=== PATIENT | male | born 1990 | race Caucasian/White ===

== ENCOUNTER 2020-10-18 09:42 | Outpatient (REF) | payer OTHER, SELFPAY ==
--- NOTE | ~2020-10-18 | CT_ITS ---
EXAMINATION: CT HEAD WITHOUT CONTRAST CLINICAL INFORMATION: Traumatic subdural hemorrhage with loss of consciousness COMPARISON: None TECHNIQUE: Contiguous axial imaging was performed from the skull base to vertex without intravenous administration of contrast. This CT examination was performed using dose optimization techniques as appropriate, variously including the following: *Automated exposure control *Adjustment of mA and/or kV according to patient size (this includes techniques or standardized protocols for targeted exams where dose is matched to indication/reason for exam; i.e. extremities or head) *Use of iterative reconstruction technique DLP: 751 mGy-cm FINDINGS: There is dural thickening and calcification and small amount of extra-axial air adjacent to the right parietal lobe. There is no evidence of an extra-axial collection. There is no evidence of intra-axial or extra-axial hemorrhage. The ventricles and extra-axial CSF spaces are appropriate. Azul-white matter differentiation is normal. No mass, mass effect or infarct is seen. There postsurgical changes from frontal and parietal bone craniotomy. Bony structures are otherwise unremarkable. CT/CT head/brain wo con IMPRESSION: Post surgical changes to the right frontal and parietal bones. Slight dural thickening and calcification and small amount of extra-axial air adjacent to the right parietal lobe. No evidence of hemorrhage.
== END 2020-10-18 09:43 | disposition home or self-care (01) ==
LOC: HO.CT 09:42
PROVIDERS: PCP Internal Medicine; Visit Provider Internal Medicine
DX: S06.5X9A Traumatic subdural hemorrhage with loss of consciousness of unspecified duration, initial encounter (principal); R43.0 Anosmia; R43.2 Parageusia
CPT/HCPCS: 70450

== ENCOUNTER 2021-05-23 13:48 | Outpatient (REF) | payer OTHER, SELFPAY ==
[2021-05-24 03:09] LABS: CT PCR NOT DETECTED (Not Detect.); NG PCR NOT DETECTED (Not Detect.)
[2021-05-24 08:10] LABS: HIV AB/AG Nonreactive (Nonreactive); HIV Num 1 0.09 S/CO (0.00-0.99)
[2021-05-25 08:42] LABS: Syphilis Screen Nonreactive (Nonreactive)
== END 2021-05-23 13:49 | disposition home or self-care (01) ==
LOC: HO.HMGCLDS 13:48
PROVIDERS: Visit Provider Internal Medicine
DX: Z00.00 Encounter for general adult medical examination without abnormal findings (principal); Z11.3 Encounter for screening for infections with a predominantly sexual mode of transmission; Z11.4 Encounter for screening for human immunodeficiency virus [HIV]
CPT/HCPCS: 86780; 87389; 87491; 87591

== ENCOUNTER → 2021-07-30 13:04 | Outpatient (BNVA) | payer OTHER, SELFPAY | PROVIDERS: PCP Internal Medicine; Visit Provider Surgery | DX: K40.90 Unilateral inguinal hernia, without obstruction or gangrene, not specified as recurrent (principal) | CPT/HCPCS: 99202 ==

== ENCOUNTER 2021-09-12 13:06 | Outpatient (REF) | payer OTHER, SELFPAY ==
[2021-09-12 13:25] LABS: COVID-19 Test Positive (Negative)
== END 2021-09-12 13:07 | disposition home or self-care (01) ==
LOC: HO.LAB 13:06
PROVIDERS: Visit Provider Internal Medicine
DX: Z20.822 Contact with and (suspected) exposure to COVID-19 (principal)
CPT/HCPCS: 87635; C9803

== ENCOUNTER 2021-09-25 07:06 | Day surgery (SDC) | payer OTHER, SELFPAY ==
[2021-09-19 14:16] VITALS: BMI 24.9
--- NOTE | 2021-09-24 09:25 | HO.ANESPROP2 ---
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 [facility] Active Problems Active Problems: All Active Problems (Updated 09/19/21 @ 14:21 by Latasha Parra RN) Recurrent mild major depressive disorder with anxiety (Acute) Right inguinal hernia (Acute) History of peptic ulcer (Acute) Right lower quadrant abdominal mass (Acute) Traumatic epidural hematoma (Acute) Loss of taste (Acute) Anosmia (Acute) Past Medical History Medical History Anosmia Anxiety Calvarial fracture COVID-19 vaccine series completed History of COVID-19 History of peptic ulcer Loss of taste Recurrent mild major depressive disorder with anxiety Right inguinal hernia Right lower quadrant abdominal mass Routine screening for STI (sexually transmitted infection) Traumatic subdural hematoma Family History Family History Father H/O: stroke History of hypertension Mother Hepatitis B Surgical History Surgical History H/O craniotomy History of gastric surgery Social History Social History Housing: House Are you a primary child care lead teacher to a significant other at home: No Do you presently have visiting nurse or other home services: No Alcohol intake: never Patient Tobacco Use Status: Former Tobacco user Quit Date: age 27 (currently vapes-attempting to quit) Tobacco use type: Cigarette Years Smoked: 4 yrs e-Cigarette/Vaping Use: Never Used Use of substances other than those prescribed or required for medical reasons: No Have you been hit, kicked, punched, or otherwise hurt by someone within the past year? If so, by whom?: No Are you DNR?: No Advance Directives: No Advance Directives Information Provided: Yes (brochure mailed) Advance Directives on File: No Recently lost weight without trying: No Eating poorly because of decreased appetite: No Nutrition Risks: No Nutritional Risk Poor oral hygiene: No service: No Current occupational status: employed Meds Allergies Allergy/AdvReac Type Severity Reaction Status Date / Time No Known Allergies Allergy Verified 09/25/21 07:12 Home Medications Medication Instructions Recorded Confirmed Last Taken Type multivitamin 1 tab PO DAILY 05/23/21 09/19/21 Unknown History omega-3 fatty acids 1,000 mg 1,000 mg PO DAILY 05/23/21 09/19/21 Unknown History capsule (Fish Oil Concentrate) tumeric 100 mg-gale 150 mg-olive 1 cap PO DAILY 05/23/21 09/19/21 Unknown History 50 mg-oreg 150 mg-caprylate capsule Exam Exam Date and Time: September 24, 2021 0925 Height,Weight and Vital Signs: Height 5 ft 8 in Weight 74.389 kg Assessment and Plan Assessment Anesthesia Assessment: Chart Reviewed Documented by User: Chago Ron MD 09/25/21 09:05 [facility] Past Medical History Medical History Anosmia Anxiety Calvarial fracture COVID-19 vaccine series completed History of COVID-19 History of peptic ulcer Loss of taste Recurrent mild major depressive disorder with anxiety Right inguinal hernia Right lower quadrant abdominal mass Routine screening for STI (sexually transmitted infection) Traumatic subdural hematoma Family History Family History Father H/O: stroke History of hypertension Mother Hepatitis B Family history of problems with anesthesia: No Surgical History Surgical History H/O craniotomy History of gastric surgery History of Problems with Anesthesia: No Social History Social History Housing: House Are you a primary child care lead teacher to a significant other at home: No Do you presently have visiting nurse or other home services: No Alcohol intake: never Patient Tobacco Use Status: Former Tobacco user Quit Date: age 27 (currently vapes-attempting to quit) Tobacco use type: Cigarette Years Smoked: 4 yrs e-Cigarette/Vaping Use: Never Used Use of substances other than those prescribed or required for medical reasons: No Have you been hit, kicked, punched, or otherwise hurt by someone within the past year? If so, by whom?: No Are you DNR?: No Advance Directives: No Advance Directives Information Provided: Yes (brochure mailed) Advance Directives on File: No Recently lost weight without trying: No Eating poorly because of decreased appetite: No Nutrition Risks: No Nutritional Risk Poor oral hygiene: No service: No Current occupational status: employed Meds Allergies Allergy/AdvReac Type Severity Reaction Status Date / Time No Known Allergies Allergy Verified 09/25/21 07:12 Home Medications Medication Instructions Recorded Confirmed Last Taken Type multivitamin 1 tab PO DAILY 05/23/21 09/19/21 Unknown History omega-3 fatty acids 1,000 mg 1,000 mg PO DAILY 05/23/21 09/19/21 Unknown History capsule (Fish Oil Concentrate) tumeric 100 mg-gale 150 mg-olive 1 cap PO DAILY 05/23/21 09/19/21 Unknown History 50 mg-oreg 150 mg-caprylate capsule Exam Airway Mallampati Class: I TM Dist: >3cm Neck ROM: Full Loose/Missing/Broken Teeth: No Heart: ok Lungs: ok Assessment and Plan Final Anesthetic Review Family History of Problems with Anesthesia: No History of Problems with Anesthesia: No NPO: Yes ASA Class: II Final Preanesthetic Review: No Changes in Pt Med Stat, Meds/Allgs Chart Reviewed, Consent Obtained/Reviewed and Anes Risks/Benef Reviewed Patient Risk: Low Procedure Risk: Low Anesthetic Plan Anesthetic Plan: GA and Agree w/ Assess. and Plan Disposition: Standard PACU
[2021-09-25 07:24] VITALS: BP 134/84; PULSE 55; RESP 16; TEMP 36.8; O2SAT 99
--- NOTE | 2021-09-25 07:26 | MHC.SHP ---
Pre-Procedural Eval Section A Date of Service: 09/25/21 Section B Chief Complaint: Unilateral inguinal hernia, Details of Present Illness: has reducible mass on the right groin c/w hernia Relevant Family History (Specify if Yes): No Relevant Social History: None Present Medications: see Short Stay Collaborative assessment Medical History: Significant History (anxiety/depression, hx of TBI, ) Allergies: Allergies Allergy/AdvReac Type Severity Reaction Status Date / Time No Known Allergies Allergy Verified 09/25/21 07:12 Review of Systems Sugical H&P ROS: Negative: Constitution, Cardiovascular, Respiratory, Neurological, Psychiatric, Hem-Onc, Allergic/Immunologic, Gastrointestinal, Genitourinary, Musculoskeletal, Integumentary, Endocrine and Eyes/Ears/Nose/Throat Exam Surgical H&P Exam: Normal: HEENT, Normal: Heart, Normal: Lungs, Normal: Extremities, Normal: Skin and Normal: Neurological and Significant Findings: Abdomen (reducible right inguinal hernia) Plan I have reviewed the history and physical and performed a pertinent physical examination on my patient. No changes have occurred unless specified.
[2021-09-25] MEDS: Lactated Ringers 1,000 ML 100 ML IVCONT (07:54)
--- NOTE | 2021-09-25 09:52 | P.OP_ITS ---
Operative Note Operative Note Date of Service: 09/25/21 Narrative: Preop diagnosis: Inguinal hernia Postop diagnosis: Right inguinal hernia, indirect Procedure: Repair of right inguinal hernia with mesh Surgeon: Taco Cedillo MD assistant teacher primary: GARRETT Harris The patient is a 31-year-old male with a reducible mass on the right groin consistent with a right inguinal hernia. He understood the technique of repair with mesh. He was aware of the risks, benefits, and alternatives He was brought to the operating room and placed supine under general anesthesia via laryngeal mask airway. The right groin was prepped and draped in the usual sterile fashion. A surgical time-out was done. The patient received cefazolin 2 g IV preoperatively. I infiltrated the planned line of incision with lidocaine 1%. I made a short incision skin along an imaginary line from the anterior superior iliac spine to the pubic ramus using blade 15. This was carried down through the full-thickness of skin subcutaneous fat with electrocautery. The external oblique aponeurosis was visualized. I bluntly dissected this to define the external ring. I made an incision on the external oblique aponeurosis using blade 15 and nd this was extended inferomedially to connect with the external ring. I bluntly dissected the underside of the aponeurosis to create a pocket for the mesh. I also bluntly dissected the spermatic cord and its contents with my index finger until I was able to pass a [place] drain around this. This [place] drain was used for traction. I identified the vas deferens and the accompanying vessels. By doing so was able to identify a small hernia sac anteromedial aspect. This sac was gently dissected off of the rest of the cord contents until this was reduced through the internal ring. This was therefore an indirect hernia. I reinforced the internal ring with a small sized Prolene plug. The plug was secured with Prolene 2 sutures to the shelving edge of the inguinal and laterally and the internal oblique superior and medial using the inner leaves of the mesh. I then reinforced the floor of the canal with a keyhole mesh. The tails of the mesh were passed around the cord at the level of the internal ring and were secured together with Prolene 2 sutures. I secured the mesh with Prolene 2 sutures to the shelving edge of the inguinal and laterally and the internal oblique superiorly medially as well as the ramus inferomedially I then irrigated. Once hemostasis was ensured, I applied viscous bupivacaine and meloxicam to the underside of the aponeurosis. I closed the aponeurosis were running Dexon 2-0 stitch to re-create the external ring. I applied viscus bupivacaine and meloxicam again to the layer above the closed fascia. I then reapposed the subcutaneous layer with Dexon 3-0 the sutures. Skin closure was achieved with Dexon 4-0 subcuticular running stitch. Steri-Strips and dressings were applied. The incision was also infiltrated with Marcaine 0.5% for postop analgesia. The procedure was then completed The patient tolerated procedure well. There were no complication noted. Initial and final counts of sponges and instruments were correct. Estimated blood loss was about 10 cc The patient was extubated without difficulty and transferred to the recovery room with stable vital signs
[2021-09-25 10:11] VITALS: BP 146/90; PULSE 47; RESP 12; TEMP 36.7; O2SAT 99
[2021-09-25 10:16] VITALS: BP 142/91; PULSE 48; RESP 12; O2SAT 99
[2021-09-25 10:21] VITALS: BP 129/92; PULSE 43; RESP 14; O2SAT 99
[2021-09-25 10:26] VITALS: BP 142/88; PULSE 47; RESP 16; O2SAT 100
[2021-09-25] MEDS: Acetaminophen 325 MG TABLET 650 MG PO (10:30)
[2021-09-25 10:41] VITALS: BP 143/89; PULSE 48; RESP 16; TEMP 36.4; O2SAT 100
== END 2021-09-25 11:32 | disposition home or self-care (01) ==
PROVIDERS: PCP Internal Medicine; Visit Provider Surgery
PROC: (CPT 49505; principal; 2021-09-25 09:10)
DX: K40.90 Unilateral inguinal hernia, without obstruction or gangrene, not specified as recurrent (principal); R43.0 Anosmia; F41.1 Generalized anxiety disorder; Z79.899 Other long term (current) drug therapy; Z86.16 Personal history of COVID-19; Z98.890 Other specified postprocedural states; Z87.891 Personal history of nicotine dependence
CPT/HCPCS: 49505; C1781; C9399; J0690; J1100; J1885; J2250; J2405; J3010

== ENCOUNTER → 2021-10-08 09:06 | Outpatient (BNVA) | payer OTHER, SELFPAY | PROVIDERS: PCP Internal Medicine; Referring Provider Internal Medicine; Visit Provider Surgery | DX: Z48.815 Encounter for surgical aftercare following surgery on the digestive system (principal); Z87.19 Personal history of other diseases of the digestive system | CPT/HCPCS: 99212 ==

== ENCOUNTER 2022-08-19 11:03 | Outpatient (REF) | payer OTHER, SELFPAY ==
[2022-08-19 13:44] LABS: MANUAL DIFF FLAG NO
[2022-08-19 13:58] LABS: Basophils Percent Auto 0.3 % (0-2); Eosinophils Percent Auto 0.8 % (0-4); Hematocrit 45.4 % (42.0-52.0); Imm Gran Abs Auto 0.01 X10*3/uL (0.00-0.03); Imm Gran Pct Auto 0.3 % (0.0-0.4); Lymphocytes Percent Auto 26.9 % (20-40); Mean Corpuscular Hemoglobin 30.3 pg (27.0-33.0); Mean Corpuscular Volume 91.7 fL (80.0-98.0); Mean Platelet Volume 9.8 fL (9.4-12.4); Monocytes Absolute Auto 0.3 X10*3/uL (0.1-1.2); Neutrophils Absolute Auto 2.5 x10*3/uL (2.0-8.3); Neutrophils Percent Auto 63.7 % (45-73); Platelet Count 243 X10*3/uL (160-400); Red Blood Count 4.95 X10*6/uL (4.60-5.80); Red Cell Distribution Width 11.7 % (11.0-16.0); White Blood Count 3.9 X10*3/uL (4.8-10.8)
[2022-08-19 14:24] LABS: Alanine Aminotransferase 23 U/L (0-40); Anion Gap 12 (12-20); Aspartate Amino Transferase 22 U/L (5-37); Blood Urea Nitrogen 13 mg/dL (9-16); Calcium 9.7 mg/dL (8.4-10.2); Carbon Dioxide 30 mmol/L (22-29); Chloride 103 mmol/L (96-108); Cholesterol 223 mg/dL; Estimated Glomerular Filt Rate > 60; Glucose Fasting 96 mg/dL (60-99); HDL Cholesterol 67 mg/dL; LDL Cholesterol Calculated 145 mg/dl; Potassium 5.1 mmol/L (3.3-5.1); Sodium 140 mmol/L (135-145); Triglycerides 59 mg/dL
[2022-08-19 14:41] LABS: Vitamin D 25-OH Total 21.6 ng/mL (>30)
[2022-08-19 14:45] LABS: Syphilis Screen Nonreactive (Nonreactive)
== END 2022-08-19 11:04 | disposition home or self-care (01) ==
LOC: HO.HMGCLDS 11:03
PROVIDERS: PCP Internal Medicine; Visit Provider Internal Medicine
DX: Z00.01 Encounter for general adult medical examination with abnormal findings (principal); F33.0 Major depressive disorder, recurrent, mild; F41.9 Anxiety disorder, unspecified; Z87.11 Personal history of peptic ulcer disease; Z20.2 Contact with and (suspected) exposure to infections with a predominantly sexual mode of transmission
CPT/HCPCS: 36415; 80048; 80061; 82306; 84450; 84460; 85025; 86780

== ENCOUNTER 2023-01-22 12:36 | Outpatient (AMB) | payer OTHER, SELFPAY ==
--- NOTE | 2023-01-22 13:03 | AM.OFFWIN_ITS ---
Intake Vital Signs 01/22/23 13:04 Height 5 ft 9 in Weight 174 lb BMI 25.7 BP 110/64 Blood Pressure Location Rt brachial Position Sitting Pulse 63 Pulse Source Pulse Oximeter Temp 97.8 F Temp Source Temporal Artery Scan Pulse Oximetry (%) 99 Intake Visit Reasons: EST/left ankle pain Intake Note: pt is here for c/o left ankle pain Patient Tobacco Use Status: Former Tobacco user Quit Date: age 27 (currently vapes-attempting to quit) Allergies No Known Allergies Allergy (Verified 01/22/23 13:38) Medication List - Last Reconciled 01/22/23 by Bob Thao MD buspirone 10 mg (2 x 5 mg) PO TID 30 days clonidine HCl 0.1 mg PO BID escitalopram oxalate 10 mg PO DAILY multivitamin 1 tab PO DAILY omega-3 fatty acids (Fish Oil Concentrate) 1,000 mg PO DAILY Do you need a note to return to daycare/school/sports/work: Yes HPI EST/left ankle pain HPI Details 32-year-old male presents to the office for a sick visit. Patient rolled over his ankle while walking yesterday. Significant swelling. [facility] Medical History (Updated 01/22/23 @ 13:34 by Bob Thao MD) Annual visit for general adult medical examination with abnormal findings Anosmia Anxiety Calvarial fracture COVID-19 vaccine series completed Depression History of COVID-19 History of peptic ulcer Loss of taste Right inguinal hernia Routine screening for STI (sexually transmitted infection) Traumatic epidural hematoma Surgical History H/O craniotomy History of gastric surgery Family History Father H/O: stroke History of hypertension Mother Hepatitis B Social History Housing: House Are you a primary emergency care attendant to a significant other at home: No Do you presently have visiting nurse or other home services: No Alcohol intake: never Patient Tobacco Use Status: Former Tobacco user Quit Date: age 27 (currently vapes-attempting to quit) Years Smoked: 4 yrs e-Cigarette/Vaping Use: Former Use service: No Current occupational status: employed Cognitive needs: No Hearing needs: No Vision needs: Yes Physical Exam Vital Signs: Last Vital Signs Temp 97.8 F 01/22/23 13:04 Pulse 63 01/22/23 13:04 BP 110/64 01/22/23 13:04 Pulse Ox 99 01/22/23 13:04 BMI result Body Mass Index 25.7 Extrem Other: Left ankle: Bruising over the lateral side of the foot and ankle. Very painful on inversion and eversion. Full flexion and extension of the foot at the ankle is painful. Assessment & Plan Assessment & Plan (1) Sprain of left ankle: Code(s): S93.402A - Sprain of unspecified ligament of left ankle, initial encounter Plan: X-ray images were personally reviewed by me. No fractures seen. Meloxicam called in. Ankle brace provided. Note for work given. Orders: Orders XR ankle LT min 3V Today S93.402A - Sprain of unspecified ligament of left ankle, initial encounter Coding Level of Care Code Est Pt Level 4 (11279) Diagnoses Sprain of left ankle S93.402A
[2023-01-22 13:04] VITALS: BP 110/64; PULSE 63; TEMP 36.6; O2SAT 99; BMI 25.7
== END 2023-01-22 14:39 | disposition home or self-care (01) ==
PROVIDERS: PCP Internal Medicine; Visit Provider Internal Medicine
DX: S93.402A Sprain of unspecified ligament of left ankle, initial encounter (principal)
CPT/HCPCS: 99214

== ENCOUNTER 2023-01-22 13:36 | Outpatient (REF) | payer OTHER, SELFPAY ==
--- NOTE | ~2023-01-22 | XR_ITS ---
EXAMINATION: XR ANKLE, LEFT CLINICAL INFORMATION: Left ankle pain status post injury. COMPARISON: None available. TECHNIQUE: AP, lateral, and mortise views of the left ankle. An indicator arrow points to the lateral malleolus. FINDINGS: No fracture. Alignment is anatomic. No erosions. Joint spaces are maintained. Soft tissues are normal. XR/XR ankle LT min 3V IMPRESSION: Unremarkable left ankle.
== END 2023-01-22 13:37 | disposition home or self-care (01) ==
LOC: HO.HMGCX 13:36
PROVIDERS: PCP Internal Medicine; Visit Provider Internal Medicine
DX: S93.402A Sprain of unspecified ligament of left ankle, initial encounter (principal); X58.XXXA Exposure to other specified factors, initial encounter; Y93.9 Activity, unspecified; Y92.9 Unspecified place or not applicable; Y99.9 Unspecified external cause status
CPT/HCPCS: 73610

== ENCOUNTER 2023-08-06 10:09 | Outpatient (REF) | payer OTHER, SELFPAY ==
[2023-08-06 14:06] LABS: Alanine Aminotransferase 17 U/L (0-40); Anion Gap 10 (12-20); Aspartate Amino Transferase 17 U/L (5-37); Blood Urea Nitrogen 11 mg/dL (9-16); Calcium 9.6 mg/dL (8.4-10.2); Carbon Dioxide 29 mmol/L (22-29); Chloride 105 mmol/L (96-108); Cholesterol 203 mg/dL (<200); Estimated Glomerular Filt Rate > 60; Glucose Fasting 100 mg/dL (60-99); HDL Cholesterol 46 mg/dL (>40); LDL Cholesterol Calculated 146 mg/dL (<100); Potassium 4.2 mmol/L (3.3-5.1); Sodium 140 mmol/L (135-145); Triglycerides 55 mg/dL (<150); Vitamin D 25-OH Total 25.2 ng/mL (>30)
== END 2023-08-06 10:10 | disposition home or self-care (01) ==
LOC: HO.HMGCLDS 10:09
PROVIDERS: PCP Internal Medicine; Visit Provider Internal Medicine
DX: F32.A Depression, unspecified (principal); E78.5 Hyperlipidemia, unspecified; E55.9 Vitamin D deficiency, unspecified
CPT/HCPCS: 36415; 80048; 80061; 82306; 84450; 84460

== ENCOUNTER 2023-08-22 11:06 | Outpatient (AMB) | payer OTHER, SELFPAY ==
[2023-08-22 11:42] VITALS: BP 126/84; PULSE 74; O2SAT 98; BMI 24.8
--- NOTE | 2023-08-22 11:42 | MHC.PC.OV ---
Vital Signs 08/22/23 11:42 Height 5 ft 9 in Weight 168 lb BMI 24.8 BP 126/84 Blood Pressure Location Rt brachial Position Sitting Pulse 74 Pulse Source Pulse Oximeter Pulse Oximetry (%) 98 Oxygen Delivery Method Room Air Intake Visit Reasons: PE Intake Note: Pt is here today for his physical exam. Allergies No Known Allergies Allergy (Verified 08/22/23 12:06) Medication List - Last Reconciled 08/22/23 by Mary Ardon MD bupropion HCl 150 mg PO QAM buspirone 10 mg PO BID cholecalciferol (vitamin D3) 1,250 mcg PO QWEEK 3 months clonidine HCl 0.1 mg PO BID fluoxetine 40 mg PO DAILY multivitamin 1 tab PO DAILY omega-3 fatty acids (Fish Oil Concentrate) 1,000 mg PO DAILY Tobacco use date assessed: 08/22/23 Dental Screening Dental Screen Date: 08/22/23 Did you have a dental visit in the last 12 months?: Yes Did you have a dental problem in the last 6 months where you did not have access to dental care?: No Was dental information given to patient?: Patient has dentist HPI PE HPI Details 34-year-old male depression, dyslipidemia, history of vitamin-D deficiency, here today for his physical exam. He has been feeling well, has no complaints at present time. Up-to-date with all his vaccines, per patient, which he gets from the . He currently sees a psychiatrist , with depression stable and controlled on current medications. [facility] Medical History Vitamin D deficiency Dyslipidemia Depression Annual visit for general adult medical examination with abnormal findings Anxiety History of COVID-19 COVID-19 vaccine series completed Right inguinal hernia History of peptic ulcer Routine screening for STI (sexually transmitted infection) Traumatic epidural hematoma Calvarial fracture Loss of taste Anosmia Surgical History History of gastric surgery H/O craniotomy Family History Father H/O: stroke History of hypertension Mother Hepatitis B Social History Housing: House Are you a primary palliative care nurse to a significant other at home: No Do you presently have visiting nurse or other home services: No Alcohol intake: never Patient Tobacco Use Status: Former Tobacco user Quit Date: age 27 (currently vapes-attempting to quit) Years Smoked: 4 yrs e-Cigarette/Vaping Use: Former Use service: No Current occupational status: employed Cognitive needs: No Hearing needs: No Vision needs: Yes Questionnaire PHQ-9 Over the last 2 weeks, how often have you been bothered by any of the following problems? 1. Little interest or pleasure in doing things: not at all 2. Feeling down, depressed, or hopeless: not at all 3. Trouble falling or staying asleep, or sleeping too much: more than half the days 4. Feeling tired or having little energy: several days 5. Poor appetite or overeating: not at all 6. Feeling bad about yourself - or that you are a failure or have let yourself or your family down: not at all 7. Trouble concentrating on things, such as reading the newspaper or watching television: several days 8. Moving or speaking so slowly that other people could have noticed. Or the opposite - being so fidgety or restless that you have been moving around a lot more than usual: not at all 9. Thoughts that you would be better off or of hurting yourself in some way: not at all Total score: 4 Depression Screening Interpretation: Positive (His currently followed by psychiatry) Depression Screening Follow-up: Existing condition, In treatment and Community Mental Health Worker F/U Depression Screening Done: Yes 63984 - PHQ-9 Billing: Yes Source: Developed by Drs. Aly Jiménez, Payal Hollingsworth, Allen Corona and colleagues, with an educational gold from [employer]. Thrive Questionnaire Date Thrive assessed: 08/22/23 I am a: Patient What is your living situation today?: I have a steady place to live Within the past 12 months, did the food you bought not last and you didn't have the money to get more?: Never true Within the past 12 months, did you worry whether your food would run out before you got money to buy more?: Never true Do you have trouble paying for medicines?: No Do you have trouble getting transportation to medical appointments?: No Do you have trouble paying your heating and electricity bill?: No Do you have trouble taking care of your child, family member or friend?: No Do you have trouble with day-to-day activities such as bathing, preparing meals, shopping, managing finances, etc.?: No Are you currently unemployed and looking for a job?: No Are you interested in more education?: No THRIVE Score: 0 AUDIT C Alcohol Use Questionnaire (AUDIT-C) 1. How often do you have a drink containing alcohol?: Never Total Score: 0 TOMA-7 AMB Questionnaire TOMA-7 Date TOMA - 7 assessed: 08/22/23 Feeling nervous, anxious, or on edge: 1 = Several days Not being able to stop or control worryin = Not at all Worrying too much about different things: 1 = Several days Trouble relaxin = Several days Being so restless that it is hard to sit still: 0 = Not at all Becoming easily annoyed or irritable: 1 = Several days Feeling afraid as if something awful might happen: 0 = Not at all Total TOMA-7 score (0-4 normal; 5-9 mild; 10-14 moderate; 15-21 severe): 4 Source: Developed by Drs. Aly Jiménez, Payal Hollingsworth, Allen Corona and colleagues, with an educational gold from [employer]. Review of Systems Const Denies fatigue, Denies fever(s) and Denies headache(s) Eyes Denies change in vision ENT Reports no additional complaints and Denies headache(s) Card Denies chest pain, Denies dyspnea and Denies dyspnea on exertion Resp Denies cough, Denies dyspnea and Denies dyspnea on exertion GI Denies hematochezia and Denies change in bowel habits Denies hematuria and Denies difficulty urinating Musc Denies back pain and Denies limited range of motion Skin/Breast Denies lesions and Denies rash Neuro Denies headache(s), Denies focal weakness and Denies convulsions Psych Reports as per HPI Endo Reports no additional complaints and Denies fatigue Juan/Lymph Reports no additional complaints Aller/Immun Reports no additional complaints Physical exam (Primary Care) Vital Signs: Last Vital Signs Pulse 74 08/22/23 11:42 BP 126/84 08/22/23 11:42 Pulse Ox 98 08/22/23 11:42 Oxygen Delivery Method Room Air 08/22/23 11:42 BMI result Body Mass Index 24.8 Tobacco/Smoking Status: Tobacco use Status Tobacco use date assessed 08/22/23 08/22/23 11:47 Patient Tobacco Use Status Former Tobacco user 08/22/23 11:47 Tobacco use type 11/23/21 13:48 e-Cigarette/Vaping Use Former Use 08/22/23 11:47 PHQ-9: PHQ-9 Score PHQ-9: Total score 6 08/22/23 12:07 Depression Screening Interpretation: Positive (His currently followed by psychiatry) Depression Screening Follow-up: Existing condition, In treatment and Community Mental Health Worker F/U Thrive Assessment: Date of Thrive Assessment Date Thrive assessed 08/22/23 08/22/23 11:51 Const General: cooperative, comfortable, no acute distress, alert, awake and Physically active Nutritional Appearance: average body habitus Orientation/consciousness: patient oriented x3 HENMT Head: Yes normocephalic and Yes atraumatic Ears: external ears normal, TM's normal bilaterally and EAC's normal General nose exam: Normal external nose present and No nasal discharge present Face and sinus: Yes face symmetric Mouth: Normal oral and palatal mucosa present and moist mucous membranes Throat: Yes posterior oropharynx normal Eyes General: appearance normal, both eyes and all related structures Neck Neck: Yes full ROM, Yes no lymphadenopathy and Yes supple Thyroid: Thyroid normal (nonpalpable) Chest Chest palpation & inspection: normal palpation of entire chest wall Resp Effort & Inspection: normal respiratory effort and able to speak in complete sentences Auscultation: clear to auscultation bilaterally Cardio Rate: regular rate Rhythm: regular rhythm Heart sounds: S1 normal heart sound present and S2 normal heart sound present Peripheral pulses: Peripheral pulses 2+ throughout GI Palpation (GI): Soft to palpation, nontender, no guarding and no masses Auscultation: normal bowel sounds General: Yes no CVA tenderness Male General Exam: Yes normal external exam Penis: normal penis and uncircumcised Scrotum: scrotum normal and testes descended bilaterally Back/Spine/Pelvis Back: no CVA tenderness Skin General skin exam: no rashes or lesions noted and scars (Epigastric area) Neuro General: patient oriented x3, gait normal, moves all extremities, Normal light touch and pain sensation and no focal motor deficits Extrem General: Yes full ROM, Yes no clubbing, cyanosis or edema and Yes normal gait Psych Appearance: grossly normal and well kempt Mental Status: mental status grossly normal Speech and movement: Normal speech and movement present Affect: normal affect Attitude: cooperative Thought process: Normal thought process present Results Reviewed Results Reviewed: SPEC : [id number] JAMES: 08/06/23 STATUS: COMP REQ : [id number] RECD: 08/06/[address]: Mary Ardon MD COMP: 08/06/23 ENTERED: 08/06/[address] [facility]: ORDERED: Met Prof Fast, AST, ALT, Lipid Panel, Vitamin D 25-OH Test Result Flag Reference Sodium 140 135-145 mmol/L Potassium 4.2 3.3-5.1 mmol/L CL 105 96-108 mmol/L CO2 29 22-29 mmol/L Gap 10 L 12-20 BUN 11 9-16 mg/dL Creat 0.76 0.5-1.4 mg/dL EGFR > 60 NOTE: For -[place] individuals, multiply the result by 1.210. Chronic Kidney Disease: Estimated GFR < 60 mL/min/1.73m2 Severe Kidney Disease: Estimated GFR < 15 mL/min/1.73m2 FBS 100 H 60-99 mg/dL A fasting glucose from 100-125 mg/dl is considered impaired (pre-diabetes). CA 9.6 8.4-10.2 mg/dL AST (GOT) 17 5-37 U/L ALT (GPT) 17 0-40 U/L Triglyceride 55 <150 mg/dL Desirable Triglyceride: less than 150 mg/dL Borderline High Triglyceride 150-199 mg/dL High Triglyceride: 200-499 mg/dL Very High Triglyceride: greater than or equal to 5OO mg/dL Cholesterol 203 H <200 mg/dL Desirable Cholesterol: less than 200 mg/dL Borderline High Cholesterol: 200-239 mg/dL High Cholesterol: greater than 239 mg/dL LDL Calculated 146 H <100 mg/dL Desirable LDL: less than 100 mg/dL Near Optimal/Above Optimal LDL: 110-129 mg/dL Borderline High LDL: 130-159 mg/dL High LDL: 160-189 mg/dL Very High LDL: greater than or equal to 190 mg/dL HDL 46 >40 mg/dL Desirable HDL: greater than 40 mg/dL Note: This HDL assay may give artificially low results in patients with liver disease. Vit D 25-OH Tot 25.2 L >30 ng/mL Health Based Reference Values* < 20 ng/mL Deficient 20-30 ng/mL Insufficient > 30 ng/mL Sufficient Assessment and Plan Assessment & Plan (1) Annual visit for general adult medical examination with abnormal findings: Code(s): Z00.01 - Encounter for general adult medical examination with abnormal findings Plan: Recent fasting lab results reviewed with patient. Recommended dental visit every 6 months and regular eye exams, at least every 2 years. Take adequate calcium in diet and vitamin-D 3 at 2000 IU per cap once a day, in addition to weight-bearing exercises to help maintain good muscle tone and weight control. Advised to do regular self testicular exam to check for any mass. Patient states he is currently up-to-date with all his vaccinations which she gets at the [facility], will give us a copy of his most recent vaccination record distance available (2) Vitamin D deficiency: Code(s): E55.9 - Vitamin D deficiency, unspecified Plan: Prescription sent for vitamin-D 350 1000 units per capsule to take once a week for the next 3 months. (3) Dyslipidemia: Code(s): E78.5 - Hyperlipidemia, unspecified Plan: Reviewed recent fasting lipid profile with patient with l elevated LDL cholesterol . Reminded importance of following a low-cholesterol diet and regular exercise, at least 30 minutes 3 to 4 times a week. Advised patient to make healthy food choices, eat more fruits, vegetables, whole grains, wild caught fish and low-fat dairy. Limit amount of meat and fried or fatty food products, as well as processed foods and fast foods. (4) Depression: Code(s): F32.A - Depression, unspecified Qualifiers: Depression Type: major depressive disorder Major depression recurrence: recurrent Active/Remission status: remission status unspecified Qualified Code(s): F33.9 - Major depressive disorder, recurrent, unspecified Plan: Currently on bupropion, buspirone, clonidine and fluoxetine, followed by psychiatry Medications: New cholecalciferol (vitamin D3) 1,250 mcg PO QWEEK 3 months 13 caps 0RF Coding Level of Care Code Est Pt Prev Care [id number](64874) Diagnoses Annual visit for general adult medical examination with abnormal findings Z00.01 Vitamin D deficiency E55.9 Dyslipidemia E78.5 Recurrent major depressive disorder, remission status unspecified F33.9 Depression Type: major depressive disorder Major depression recurrence: recurrent Active/Remission status: remission status unspecified
== END 2023-08-22 14:02 | disposition home or self-care (01) ==
PROVIDERS: Visit Provider Internal Medicine
DX: Z00.00 Encounter for general adult medical examination without abnormal findings (principal); E55.9 Vitamin D deficiency, unspecified; E78.5 Hyperlipidemia, unspecified; F33.9 Major depressive disorder, recurrent, unspecified
CPT/HCPCS: 99395

== ENCOUNTER 2023-10-17 07:39 | Outpatient (AMB) | payer OTHER, SELFPAY ==
--- NOTE | 2023-10-17 09:07 | MHC.PC.OV ---
Intake Visit Reasons: referral vasectomy Andriod Intake Note: Pt is having a TH visit to request a referral for vasectomy Allergies No Known Allergies Allergy (Verified 10/17/23 09:31) Medication List - Last Reconciled 10/17/23 by Mary Ardon MD bupropion HCl XL 150 mg PO QAM buspirone 10 mg PO BID cholecalciferol (vitamin D3) 1,250 mcg PO QWEEK 3 months clonidine HCl 0.1 mg PO BID fluoxetine 40 mg PO DAILY multivitamin 1 tab PO DAILY omega-3 fatty acids (Fish Oil Concentrate) 1,000 mg PO DAILY Tobacco use date assessed: 10/17/23 Dental Screening Dental Screen Date: 10/17/23 Did you have a dental visit in the last 12 months?: Yes Did you have a dental problem in the last 6 months where you did not have access to dental care?: No Was dental information given to patient?: Patient has dentist HPI referral vasectomy Andriod HPI Details 33-year-old male, here today requesting referral to get a vasectomy. He is , but he and his are not interested in having any children. [facility] Medical History Vitamin D deficiency Dyslipidemia Depression Annual visit for general adult medical examination with abnormal findings Anxiety History of COVID-19 COVID-19 vaccine series completed Right inguinal hernia History of peptic ulcer Routine screening for STI (sexually transmitted infection) Traumatic epidural hematoma Calvarial fracture Loss of taste Anosmia Surgical History History of gastric surgery H/O craniotomy Family History Father H/O: stroke History of hypertension Mother Hepatitis B Social History Housing: House Are you a primary healthcare advisory services manager to a significant other at home: No Do you presently have visiting nurse or other home services: No Alcohol intake: never Patient Tobacco Use Status: Former Tobacco user Quit Date: age 27 (currently vapes-attempting to quit) Years Smoked: 4 yrs e-Cigarette/Vaping Use: Former Use service: No Current occupational status: employed Cognitive needs: No Hearing needs: No Vision needs: Yes Questionnaire Thrive Questionnaire Date Thrive assessed: 08/22/23 TOMA-7 AMB Questionnaire TOMA-7 Date TOMA - 7 assessed: 08/22/23 Source: Developed by Drs. Aly Jiménez, Payal Hollingsworth, Allen Corona and colleagues, with an educational gold from [employer]. Review of Systems Const Reports no additional complaints ENT Reports no additional complaints Card Denies chest pain, Denies irregular heart rhythm, Denies lightheadedness and Denies dyspnea Resp Denies cough and Denies dyspnea GI Reports no additional complaints Reports no additional complaints Musc Reports no additional complaints Neuro Reports no additional complaints Psych Details: Has history of depression, currently stable controlled on present treatment, currently followed by his psychiatrist Endo Reports no additional complaints Juan/Lymph Denies easy bleeding and Denies easy bruising Aller/Immun Reports no additional complaints Physical exam (Primary Care) Tobacco/Smoking Status: Tobacco use Status Tobacco use date assessed 10/17/23 10/17/23 09:08 Patient Tobacco Use Status Former Tobacco user 10/17/23 09:08 Tobacco use type 11/23/21 13:48 e-Cigarette/Vaping Use Former Use 10/17/23 09:08 Thrive Assessment: Date of Thrive Assessment Date Thrive assessed 08/22/23 10/17/23 09:08 Telehealth Telehealth Telehealth Platform: [facility] Location of provider rendering services: practice address Location of patient: address on file Patient Identification confirmed using: Name, : Yes Telehealth method: video Patient verbally consented to treatment: Yes Patient verbally consented to billing insurance company: Yes Patient informed of any privacy concerns related to visit: Yes Minutes spent on Phone/Video with Pt.: 15 Assessment and Plan Assessment & Plan (1) Encounter for vasectomy assessment: Code(s): Z30.09 - Encounter for other general counseling and advice on contraception Plan: Urology consult obtain Orders: Referrals Urology Referral Z. - Encounter for other general counseling and advice on contraception Coding Level of Care Code Tele Est Pt Level 3 (11261) Diagnoses Encounter for vasectomy assessment Z
== END 2023-10-17 14:09 | disposition home or self-care (01) ==
LOC: HO.HMGC 07:39
PROVIDERS: PCP Internal Medicine; Visit Provider Internal Medicine
DX: Z30.09 Encounter for other general counseling and advice on contraception (principal)
CPT/HCPCS: 99213

== ENCOUNTER 2024-08-25 12:42 | Outpatient (AMB) | payer OTHER, SELFPAY ==
[2024-08-25 12:52] VITALS: BP 134/80; PULSE 70; O2SAT 99; BMI 24.8
--- NOTE | 2024-08-25 12:52 | MHC.PC.OV ---
Vital Signs 08/25/24 12:52 Height 5 ft 9 in Weight 168 lb BMI 24.8 BP 134/80 Blood Pressure Location Lt brachial Position Sitting Pulse 70 Pulse Source Pulse Oximeter Pulse Oximetry (%) 99 Intake Visit Reasons: PE Caustic Mixer Required: No Accompanied by: Self / Same As Patient Allergies No Known Allergies Allergy (Verified 08/25/24 13:08) Medication List - Last Reconciled 08/25/24 by Mary Ardon MD buspirone 10 mg PO BID cholecalciferol (vitamin D3) 1,250 mcg PO QWEEK 3 months fluoxetine 50 mg PO DAILY multivitamin 1 tab PO DAILY omega-3 fatty acids (Fish Oil Concentrate) 1,000 mg PO DAILY Tobacco use date assessed: 08/25/24 Dental Screening Dental Screen Date: 08/25/24 Did you have a dental visit in the last 12 months?: Yes Did you have a dental problem in the last 6 months where you did not have access to dental care?: No Was dental information given to patient?: Patient has dentist HPI PE HPI Details 34-year-old male here today for his physical exam. He has history of dyslipidemia currently taking Joliet 3 fatty acid supplement and has been trying to follow recommended diet and getting regular exercise. Currently takes fluoxetine 50 mg daily and buspirone 10 mg 1 tablet twice a day for his depression,. which is controlled on present treatment. He goes to [facility] in [place] for his eye exam, is thinking of getting Lasik surgery for both eyes. He is up-to-date with all his vaccinations and exercises regularly [facility] Medical History Vitamin D deficiency Dyslipidemia Depression Annual visit for general adult medical examination with abnormal findings Anxiety History of COVID-19 COVID-19 vaccine series completed Right inguinal hernia History of peptic ulcer Routine screening for STI (sexually transmitted infection) Traumatic epidural hematoma Calvarial fracture Loss of taste Anosmia Surgical History History of gastric surgery H/O craniotomy Family History Father H/O: stroke History of hypertension Mother Hepatitis B Social History Housing: House Are you a primary career development coordinator to a significant other at home: No Do you presently have visiting nurse or other home services: No Alcohol intake: never Patient Tobacco Use Status: Former Tobacco user Years Smoked: 4 yrs e-Cigarette/Vaping Use: Former Use service: No Current occupational status: employed Cognitive needs: No Hearing needs: No Vision needs: Yes Questionnaire PHQ-9 Over the last 2 weeks, how often have you been bothered by any of the following problems? 1. Little interest or pleasure in doing things: not at all 2. Feeling down, depressed, or hopeless: not at all 3. Trouble falling or staying asleep, or sleeping too much: not at all 4. Feeling tired or having little energy: not at all 5. Poor appetite or overeating: not at all 6. Feeling bad about yourself - or that you are a failure or have let yourself or your family down: not at all 7. Trouble concentrating on things, such as reading the newspaper or watching television: not at all 8. Moving or speaking so slowly that other people could have noticed. Or the opposite - being so fidgety or restless that you have been moving around a lot more than usual: not at all 9. Thoughts that you would be better off or of hurting yourself in some way: not at all Total score: 0 Depression Screening Interpretation: Negative Depression Screening Done: Yes 19384 - PHQ-9 Billing: Yes Source: Developed by Drs. Aly Jiménez, Payal Hollingsworth, Allen Corona and colleagues, with an educational gold from [employer]. Thrive Questionnaire Date Thrive assessed: 08/22/23 I am a: Patient What is your living situation today?: I have a steady place to live Within the past 12 months, did the food you bought not last and you didn't have the money to get more?: I choose not to answer this question Within the past 12 months, did you worry whether your food would run out before you got money to buy more?: I choose not to answer this question Do you have trouble paying for medicines?: I choose not to answer this question Do you have trouble getting transportation to medical appointments?: I choose not to answer this question Do you have trouble paying your heating and electricity bill?: I choose not to answer this question Do you have trouble taking care of your child, family member or friend?: I choose not to answer this question Do you have trouble with day-to-day activities such as bathing, preparing meals, shopping, managing finances, etc.?: I choose not to answer this question Are you currently unemployed and looking for a job?: I choose not to answer this question Are you interested in more education?: I choose not to answer this question Please select the resources that you would like help with: None Currently or been in a relationship where the following occur: I choose not to answer THRIVE Score: 0 AUDIT C Alcohol Use Questionnaire (AUDIT-C) 1. How often do you have a drink containing alcohol?: Never Total Score: 0 TOMA-7 AMB Questionnaire TOMA-7 Date TOMA - 7 assessed: 08/22/23 Feeling nervous, anxious, or on edge: 0 = Not at all Not being able to stop or control worryin = Not at all Worrying too much about different things: 0 = Not at all Trouble relaxin = Not at all Being so restless that it is hard to sit still: 0 = Not at all Becoming easily annoyed or irritable: 0 = Not at all Feeling afraid as if something awful might happen: 0 = Not at all Total TOMA-7 score (0-4 normal; 5-9 mild; 10-14 moderate; 15-21 severe): 0 Source: Developed by Drs. Aly Jiménez, Payal Hollingsworth, Allen Corona and colleagues, with an educational gold from [employer]. TOMA-7 Assessment Billing TOMA-7 Assessment Tool: TOMA-7 Assessment 15247 Review of Systems Const Reports no additional complaints Eyes Details: goes to [facility] , will be getting Lasik ENT Reports no additional complaints Card Denies chest pain, Denies irregular heart rhythm, Denies lightheadedness and Denies dyspnea Resp Denies cough and Denies dyspnea GI Reports no additional complaints Reports no additional complaints Musc Reports no additional complaints Neuro Reports no additional complaints Psych Details: Has history of depression, currently stable controlled on present treatment, currently followed by his psychiatrist Endo Reports no additional complaints Juan/Lymph Denies easy bleeding and Denies easy bruising Aller/Immun Reports no additional complaints Physical exam (Primary Care) Vital Signs: Last Vital Signs Pulse 70 08/25/24 12:52 BP 134/80 08/25/24 12:52 Pulse Ox 99 08/25/24 12:52 BMI result Body Mass Index 24.8 Tobacco/Smoking Status: Tobacco use Status Tobacco use date assessed 08/25/24 08/25/24 12:55 Patient Tobacco Use Status Former Tobacco user 08/25/24 12:55 Tobacco use type 11/23/21 13:48 e-Cigarette/Vaping Use Former Use 08/25/24 12:55 PHQ-9: PHQ-9 Score PHQ-9: Total score 0 08/25/24 13:10 Depression Screening Interpretation: Negative Thrive Assessment: Date of Thrive Assessment Date Thrive assessed 08/22/23 08/25/24 12:55 Currently or been in a relationship where the following occur: I choose not to answer Const General: cooperative, comfortable, no acute distress, alert, awake and Physically active Nutritional Appearance: average body habitus Orientation/consciousness: patient oriented x3 HENMT Head: Yes normocephalic and Yes atraumatic Ears: external ears normal, TM's normal bilaterally and EAC's normal General nose exam: Normal external nose present and No nasal discharge present Face and sinus: Yes face symmetric Mouth: Normal oral and palatal mucosa present and moist mucous membranes Throat: Yes posterior oropharynx normal Eyes General: appearance normal, both eyes and all related structures Neck Neck: Yes full ROM, Yes no lymphadenopathy and Yes supple Thyroid: Thyroid normal (nonpalpable) Chest Chest palpation & inspection: normal palpation of entire chest wall Resp Effort & Inspection: normal respiratory effort and able to speak in complete sentences Auscultation: clear to auscultation bilaterally Cardio Rate: regular rate Rhythm: regular rhythm Heart sounds: S1 normal heart sound present and S2 normal heart sound present Peripheral pulses: Peripheral pulses 2+ throughout GI Palpation (GI): Soft to palpation, nontender, no guarding and no masses Auscultation: normal bowel sounds General: Yes no CVA tenderness Male General Exam: Yes normal external exam Penis: normal penis and uncircumcised Scrotum: scrotum normal and testes descended bilaterally Back/Spine/Pelvis Back: no CVA tenderness Skin General skin exam: no rashes or lesions noted and scars (Epigastric area) Neuro General: patient oriented x3, gait normal, moves all extremities, Normal light touch and pain sensation and no focal motor deficits Extrem General: Yes full ROM, Yes no clubbing, cyanosis or edema and Yes normal gait Psych Appearance: grossly normal and well kempt Mental Status: mental status grossly normal Speech and movement: Normal speech and movement present Affect: normal affect Attitude: cooperative Thought process: Normal thought process present Coding Level of Care Code Est Pt Prev Care 18-39y(30569) Diagnoses Annual visit for general adult medical examination with abnormal findings Z00.01 Recurrent major depressive disorder, remission status unspecified F33.9 Active/Remission status: remission status unspecified Depression Type: major depressive disorder Major depression recurrence: recurrent Dyslipidemia E78.5 Vitamin D deficiency E55.9 Additional Codes TOMA-7 Assessment Billing - TOMA-7 Assessment Tool: TOMA-7 Assessment 27348 ([id number]) PHQ-9 - 61845 - PHQ-9 Billing: Yes ([id number]) Assessment & Plan Assessment & Plan (1) Annual visit for general adult medical examination with abnormal findings: Code(s): Z00.01 - Encounter for general adult medical examination with abnormal findings Category: Medical Plan: Will check appropriate labs. Recommended dental visit every 6 months and regular eye exams, at least every 2 years. Take adequate calcium in diet and vitamin-D 3 at 2000 IU per cap once a day, in addition to weight-bearing exercises to help maintain good muscle tone and weight control. Instructed to do self-testicular exam check for any mass. Up-to-date with his vaccines (2) Depression: Code(s): F32.A - Depression, unspecified Category: Medical Qualifiers: Active/Remission status: remission status unspecified Depression Type: major depressive disorder Major depression recurrence: recurrent Qualified Code(s): F33.9 - Major depressive disorder, recurrent, unspecified Plan: Controlled on fluoxetine on buspirone, currently sees a Psychiatrist (3) Dyslipidemia: Code(s): E78.5 - Hyperlipidemia, unspecified Category: Medical Plan: Fasting lipid panel ordered, continue taking Joliet 3 fatty acid supplements, follow a healthy diet and getting regular exercise (4) Vitamin D deficiency: Code(s): E55.9 - Vitamin D deficiency, unspecified Category: Medical Plan: Ordered vitamin-D level to be checked Orders: Orders Lipid Panel 08/25/24 E55.9 - Vitamin D deficiency, unspecified, E78.5 - Hyperlipidemia, unspecified, F33.9 - Major depressive disorder, recurrent, unspecified, Z00.01 - Encounter for general adult medical examination with abnormal findings Vitamin D 25-OH Total 08/25/24 E55.9 - Vitamin D deficiency, unspecified, E78.5 - Hyperlipidemia, unspecified, F33.9 - Major depressive disorder, recurrent, unspecified, Z00.01 - Encounter for general adult medical examination with abnormal findings Hemoglobin A1c 08/25/24 E55.9 - Vitamin D deficiency, unspecified, E78.5 - Hyperlipidemia, unspecified, F33.9 - Major depressive disorder, recurrent, unspecified, Z00.01 - Encounter for general adult medical examination with abnormal findings Alanine Aminotransferase 08/25/24 E55.9 - Vitamin D deficiency, unspecified, E78.5 - Hyperlipidemia, unspecified, F33.9 - Major depressive disorder, recurrent, unspecified, Z00.01 - Encounter for general adult medical examination with abnormal findings Aspartate Amino Transferase 08/25/24 E55.9 - Vitamin D deficiency, unspecified, E78.5 - Hyperlipidemia, unspecified, F33.9 - Major depressive disorder, recurrent, unspecified, Z00.01 - Encounter for general adult medical examination with abnormal findings Glucose Fasting 08/25/24 E55.9 - Vitamin D deficiency, unspecified, E78.5 - Hyperlipidemia, unspecified, F33.9 - Major depressive disorder, recurrent, unspecified, Z00.01 - Encounter for general adult medical examination with abnormal findings
--- OUTSIDE RECORDS SUMMARY | 2024-08-25 15:12 | XMS_ITS | Data Portability ---
Author Organization [place] - [facility], Allergy Address [address] [facility] [address] [place] [address] Assessment No assessment recorded. Plan of Treatment Reminders Order Date Submit Date Provider Last Modified By Organization Details Last Modified Time Details Appointments None record ed. Lab None record ed. Referral None record ed. Procedures None record ed. Surgeries None record ed. Imaging None record ed. Medication Orders None record ed. Patient TargetsNo targets recorded. Patient Instructions Encounter Date Encounter Id Patient Instructions Last Modified By Organization Details Last Modified Time 03/09/2024 [id number] 34 M and who presents today for evaluation. He has a history of noise exposure in the , and last year he was found to have some asymmetric hearing changes. He presents today for evaluation. No change in his hearing symptoms since his prior visit in June 2023. His audiogram in June showed asymmetric hearing loss, R>L. He underwent an MRI following, which showed no retrocochlear pathology. Today his audiogram is stable compared to his visit in June. No intervention recommended at this time, he can follow-up as needed or every few years to recheck his hearing. [email or web address] Not available 03/09/2024 13:27:12 Reason for Referral None Reported. Results Created Date Observation Date Name Description Value Unit Range Abnormal Flag Note LastModifiedBy Organization Detail LastModifiedTime 03/09/20 audio gram No observ ation record ed. [email or web address] Not Available 13:58:08 03/15/20 24 03/09/2024 audio gram No observ ation record ed. [email or web address] [facility] [address] [facility] [address], [place], [address], 03/16/2024 15:41:35 Result Notes None recorded. Problems Name Problem SNOMED Code Status Onset Date Resolution Date Notes Provider Name and Address Organization Details Recorded Time Bilateral tinnitus 75185455406 02 Active 2023 Tinnitus, bilateral ; Note: Date Diagnosed : 07/15/2023 10:28 AM (H93.13) Not Available [facility] 03:31:03 Sensorine ural hearing loss of bilateral ears [id number] Active 2023 Sensorine ural hearing loss, bilateral ; Note: Date Diagnosed : 07/15/2023 10:28 AM (H90.3) Not Available [facility] 03:31:03 Problem Notes None recorded. Procedures Surgical History Date Name Laterality Status Provider Name and Address Organization Details Recorded Time 03/09/2024 Comp Audio with Tymps (46952 & 66215) completed TRINIDAD SALAZAR MD [address] [place] [address], [phone], [facility] - [facility] 03/09/2024 13:29:14 Imaging Results Imaging Date Name Status LastModified by Organiz ation Details LastModified Time 03/09/2024 audiogram completed [email or web address] Information not available 03/09/2024 13:58:08 03/09/2024 audiogram completed [email or web address] [facility] [address] [address], [place], [address], 03/16/2024 15:41:35 Procedure Notes None recorded. Medical Equipment None Reported. Allergies No known drug allergies Medications Name Sig Start Date Stop Date Status Note LastModified by Organization Details LastModified Time fluoxetine 40 mg capsule TAKE 1 CAPSULE BY MOUTH DAILY active Not Available Not Available No t Available clonidine HCl 0.1 mg tablet TAKE 1 TABLET BY MOUTH TWICE DAILY NEEDED FOR ANXIETY active Not Available Not Available No t Available penicillin V potassium 500 mg tablet TAKE 1 TABLET BY MOUTH TWICE DAILY FOR 7 DAYS active Not Available Not Available No t Available buspirone 30 mg tablet TAKE 1 TABLET BY MOUTH EVERY MORNING active Not Available Not Available No t Available buspirone 10 mg tablet TAKE 1 TABLET BY MOUTH TWICE DAILY active Not Available Not Available No t Available fluoxetine 20 mg capsule TAKE 1 CAPSULE BY MOUTH DAILY FOR 7 DAYS. INCREASE TO 2 CAPSULES 40 MG BY MOUTH DAILY active Not Available Not Available No t Available escitalopram 20 mg tablet TAKE 1 TABLET BY MOUTH EVERY DAY active Not Available Not Available No t Available bupropion HCl XL 150 mg 24 hr tablet, extended release TAKE 1 TABLET BY MOUTH DAILY active Not Available Not Available No t Available cholecalcifero l (vitamin D3) 1,250 mcg (50,000 unit) capsule TAKE 1 CAPSULE BY MOUTH EVERY WEEK FOR 3 MONTHS active Not Available Not Available No t Available Vitals Date Recorded Body height Body mass index (BMI) Body weight Provider Name and Address Organization Details Last Updated DateTime 03/09/2024 175.26 cm 23.6 kg/m2 02071.78 g Yari Jane [place] - [facility] 03/09/2024 11:09:07 Social History None recorded. Functional Status None recorded. Mental Status None recorded. Family History Nothing Reported. Medical History No medical history recorded. Past Encounters Encounter ID Performer Location Encounter Start Date Encounter Closed Date Diagnosis/Indication Diagnosis SNOMED-CT Code Diagnosis ICD10 Code Diagnosis Note [id number] TRINIDAD SALAZAR MD [facility] [address] [address] 03/09/2024 10:00:47 03/09/2024 11:18:13 Sensorineural hearing loss of bilateral ears [id number] H90.3 Audiologic al evaluation results:Ri ght ear:{{Norm al sloping* M ild Modera te Moderat gaby-severe Severe Pr ofound Nor mal auditory thresholds }} to {{mild mod erate* mod erately-se fernie sever e profound with}} {{sensorin eural hearing loss with* cond uctive hearing loss with mixed hearing loss with}} {{excellen t* good fa ir poor no t measurable }} word recognitio n.Left ear:{{Norm al sloping* M ild Modera te Moderat gaby-severe Severe Pr ofound Nor mal auditory thresholds }} to {{mild* mo derate mod erately-se fernie sever e profound with}} {{sensorin eural hearing loss with* cond uctive hearing loss with mixed hearing loss with}} {{excellen t* good fa ir poor no t measurable }} word recognitio n.Tympanom etry:Right Ear:{{Type A Type As Type Ad* Type C Type C, shallow & rounded Ty pe B Type B with large volume Cou ld not maintain a hermetic seal}}Left Ear:{{Type A Type As Type Ad* Type C Type C, shallow & rounded Ty pe B Type B with large volume Cou ld not maintain a hermetic seal}} Health Concerns Section Related Observation LastModified by Organization Detai ls LastModified Time None Recorded Concern Status LastModified by Organization Details LastModified Time None Recorded Advance Directives Directive None Recorded Payers Encounter Date Sequence Insurance Name Policy Number Policy Mascorro Covered Member ID Mascorro Member ID Guarantor Name 03/09/2024 1 [facility] - DOS PRIOR TO 2024 - [employer] () Giovani Mcintosh [id number] Giovani Mcintosh Notes Date Note Type Note Provider Name and Address Organization Details Recorded Time 03/09/2024 text/html 34 M and who presents today for evaluation. He has a history of noise exposure in the , and last year he was found to have some asymmetric hearing changes. He presents today for evaluation. No change in his hearing symptoms since his prior visit in June 2023. His audiogram in June showed asymmetric hearing loss, R>L. He underwent an MRI following, which showed no retrocochlear pathology.History of cerumen noneHearings loss: yes, mild hearing loss found in 06/2023.Qtip use: noneTinnitus: noneVertigo: nonePain: noneDrainage: noneHistory of ear infections: noneHistory of ear surgeries: none TRINIDAD SALAZAR MD [address] [place] [address], [phone], [facility] - [facility] 03/09/2024 13:29:19
== END 2024-08-25 13:26 | disposition home or self-care (01) ==
LOC: HO.HMCC 12:43
PROVIDERS: PCP Internal Medicine; Visit Provider Internal Medicine
DX: Z00.01 Encounter for general adult medical examination with abnormal findings (principal); F33.9 Major depressive disorder, recurrent, unspecified; E78.5 Hyperlipidemia, unspecified; E55.9 Vitamin D deficiency, unspecified

== ENCOUNTER → 2024-08-25 12:42 | Outpatient (BNVA) | payer OTHER, SELFPAY | PROVIDERS: PCP Internal Medicine; Visit Provider Internal Medicine | DX: Z00.01 Encounter for general adult medical examination with abnormal findings (principal); F33.9 Major depressive disorder, recurrent, unspecified; E78.5 Hyperlipidemia, unspecified; E55.9 Vitamin D deficiency, unspecified | CPT/HCPCS: 96127 ==

== ENCOUNTER 2025-02-26 10:41 | Outpatient (REF) | payer OTHER, SELFPAY ==
[2025-02-26 14:01] LABS: Alanine Aminotransferase 35 U/L (0-40); Aspartate Amino Transferase 43 U/L (5-37); Cholesterol 239 mg/dL (<200); HDL Cholesterol 41 mg/dL (>40); Triglycerides 251 mg/dL (<150)
== END 2025-02-26 10:42 | disposition home or self-care (01) ==
LOC: HO.HMGCLDS 10:41
PROVIDERS: PCP Internal Medicine; Visit Provider Internal Medicine
DX: Z00.01 Encounter for general adult medical examination with abnormal findings (principal); F33.9 Major depressive disorder, recurrent, unspecified; E55.9 Vitamin D deficiency, unspecified; E78.5 Hyperlipidemia, unspecified; Z13.1 Encounter for screening for diabetes mellitus
CPT/HCPCS: 36415; 80061; 82306; 82947; 83036; 84450; 84460